=== PATIENT | male | born 1965 | race Caucasian/White ===

== ENCOUNTER 2017-07-31 11:44 | Emergency (ER) | payer SELFPAY ==
--- NOTE | 2017-07-31 11:53 | EDPHY ---
H & P Time Seen by Provider: 07/31/17 11:48 HPI/ROS: CHIEF COMPLAINT: Abdominal pain and vomiting HISTORY OF PRESENT ILLNESS: Patient has a history of carcinoid and multiple bowel obstructions, and tells me he was released from the hospital in [place] 3 weeks ago after intestinal perforation. He presents today with worsening abdominal pain since yesterday evening which is generalized and associated with "vomiting coffee-grounds" but no bloody stool or melena. Symptoms severe and worse with any oral intake. He states it feels identical to previous bowel obstruction. States "dilaudid is the only thing that helps" and allergic to fentanyl and morphine and IV contrast. REVIEW OF SYSTEMS: Eye: no change in vision ENT: no sore throat Cardiac: no chest pain or syncope Pulmonary: Chronic mild cough from his COPD, unchanged, not short of breath. Abdomen: HPI Musculoskeletal: no back pain Skin: no rash Neuro: no headache Constitutional: no fever : no urinary symptoms A comprehensive 10 point review of systems is otherwise negative aside from elements mentioned in the history of present illness. PAST MEDICAL HISTORY: previous bowel obstructions, abdominal surgery for carcinoid, hypertension, anemia, COPD Social history: Visiting from [place] as in HPI General Appearance: Alert and conversant, cooperative. Eyes: No scleral icterus. ENT, Mouth: Normal mucous membranes. Respiratory: Normal respiratory effort, breath sounds equal, lungs are clear to auscultation. Cardiovascular: Regular rate and rhythm. Normal bilateral femoral pulses. Normal peripheral pulses. Gastrointestinal: Abdomen is mildly distended with well-healed midline incision. No rebound or guarding, bowel sounds present. Rectal exam shows yellow stool sent for Hemoccult. Neurological: Alert, face symmetric, normal motor and sensory in extremities. Ambulatory, not ataxic, no antalgic gait. Skin: Warm and dry, no rashes. Musculoskeletal: No peripheral edema. Psychiatric: Not agitated. Emergency Department course/MDM: Patient states he is a hard IV stick and has IV contrast allergy. Plan for CT scanning without contrast, labs pain medication IV fluids. PDMP search is negative. Patient is yelling and asking for Dilaudid as he says it is "the only thing that works for my pain." Multiple times by myself to place IV with ultrasound assistance in both upper arms without success. Ultimately IV placed by nurse and medications given, labs drawn, off to CT. 1358: Patient states he has continued pain, only Dilaudid will help. CT scan the and lab results discussed. Since he does state that he has severe and unremitting pain; I offered to admit him to the hospital for further observation IV fluids and evaluation, the patient is agreeable to admission and determination of further treatment plan by inpatient hospitalist. Does not appear to have acute surgical abdominal process at this time. I think vascular emergency such as dissection or aneurysm is also unlikely. Patient refused nonsteroidal, ketamine, anti-emetics, anti-spasmodics, any other non-opioid treatments for his abdominal pain. 1419: Patient demanding to leave, appears comfortable, walks out without antalgic gait or assistance. He appears clinically to have capacity to make decisions regarding his care. Smoking Status: Current every day smoker Constitutional: Initial Vital Signs Temperature (C) 36.9 C 07/31/17 11:45 Heart Rate 85 07/31/17 11:45 Respiratory Rate 18 07/31/17 11:45 Blood Pressure 129/93 H 07/31/17 11:45 O2 Sat (%) 95 07/31/17 11:45 O2 Delivery Mode Room Air Allergies/Adverse Reactions: fentanyl Allergy (Verified 07/31/17 11:51) morphine Allergy (Verified 07/31/17 11:51) promethazine [From Phenergan] Allergy (Verified 07/31/17 11:50) ct contrast Allergy (Uncoded 07/31/17 11:50) Home Medications: Medication Instructions Recorded Albuterol 07/31/17 Calcium 07/31/17 Potassium Chloride 07/31/17 Vitamin B-12 07/31/17 Medical Decision Making - Diagnostics Imaging Results: Imaging Impressions Abdomen/Pelvis CT 07/31/17 12:00 Impression: 1. Severe constipation without definite evidence of obstruction. 2. Cholelithiasis without evidence of cholecystitis. 3. Additional findings as above. Attention: Please note the study is severely limited by lack of IV and enteric contrast. Depending on patient's ALLERGY, if symptoms persist and clinical suspicion warrants, repeat study with IV and oral contrast after premedication could be performed. Findings discussed with Dr. Jarred Kim on 07/31/2017 at 13:41. CT scan reviewed with Dr. Alfaro at 1:42 p.m. Shows no evidence of bowel obstruction or perforation, previous abdominal surgery, no reason for abdominal pain. Imaging: Discussed imaging studies w/ banquet server on call Radiologist Differential Diagnosis: Differential diagnosis considered for abdominal pain including but not limited to appendicitis, cholecystitis, pancreatitis, gastritis and urinary tract infection. Consult/Admit Bed Type: [place] [id number] - Data Points Laboratory Results: Laboratory Results 07/31/17 13:10 07/31/17 13:10 07/31/17 07/31/17 13:10 13:10 WBC 6.89 10^3/uL 10^3/uL (3.80-9.50) RBC 3.92 10^6/uL L 10^6/uL (4.40-6.38) Hgb 9.0 g/dL L g/dL (13.7-17.5) Hct 29.7 % L % (40.0-51.0) MCV 75.8 fL L fL (81.5-99.8) MCH 23.0 pg L pg (27.9-34.1) MCHC 30.3 g/dL L g/dL (32.4-36.7) RDW 20.3 % H % (11.5-15.2) Plt Count 239 10^3/uL 10^3/uL (150-400) MPV 9.2 fL fL (8.7-11.7) Neut % (Auto) 78.6 % H % (39.3-74.2) Lymph % (Auto) 10.2 % L % (15.0-45.0) [place] % (Auto) 9.0 % % (4.5-13.0) Eos % (Auto) 1.3 % % (0.6-7.6) Baso % (Auto) 0.6 % % (0.3-1.7) Nucleat RBC Rel Count 0.0 % % (0.0-0.2) Absolute Neuts (auto) 5.42 10^3/uL 10^3/uL (1.70-6.50) Absolute Lymphs (auto) 0.70 10^3/uL L 10^3/uL (1.00-3.00) Absolute Monos (auto) 0.62 10^3/uL 10^3/uL (0.30-0.80) Absolute Eos (auto) 0.09 10^3/uL 10^3/uL (0.03-0.40) Absolute Basos (auto) 0.04 10^3/uL 10^3/uL (0.02-0.10) Absolute Nucleated RBC 0.00 10^3/uL 10^3/uL (0-0.01) Immature Gran % 0.3 % % (0.0-1.1) Immature Gran # 0.02 10^3/uL 10^3/uL (0.00-0.10) Platelet Estimate ADEQUATE (ADEQ) Hypochromasia 1+ H Microcytic Cells 1+ H Sodium 141 mEq/L mEq/L (135-145) Potassium 4.0 mEq/L mEq/L (3.5-5.2) Chloride 103 mEq/L mEq/L (97-110) Carbon Dioxide 24 mEq/l mEq/l (22-31) Anion Gap 14 mEq/L mEq/L (8-16) BUN 13 mg/dL mg/dL (7-23) Creatinine 0.7 mg/dL mg/dL (0.7-1.3) Estimated GFR > 60 Glucose 76 mg/dL mg/dL (70-100) Calcium 8.5 mg/dL mg/dL (8.5-10.4) Total Bilirubin 0.5 mg/dL mg/dL (0.1-1.4) Conjugated Bilirubin 0.5 mg/dL mg/dL (0.0-0.5) Unconjugated Bilirubin 0.0 mg/dL mg/dL (0.0-1.1) AST 26 IU/L IU/L (17-59) ALT 40 IU/L IU/L (21-72) Alkaline Phosphatase 82 IU/L IU/L (38-126) Total Protein 7.3 g/dL g/dL (6.3-8.2) Albumin 4.1 g/dL g/dL (3.5-5.0) Lipase 107 IU/L IU/L (23-300) Medications Given: Discontinued Medications Hydromorphone HCl (Dilaudid) 0.5 mg IVP EDNOW ONE Stop: 07/31/17 12:01 Last Admin: 07/31/17 13:14 Dose: 0.5 mg Sodium Chloride (Ns) 1,000 mls @ 0 mls/hr IV EDNOW ONE; Wide Open PRN Reason: Protocol Stop: 07/31/17 12:01 Last Admin: 07/31/17 13:15 Dose: 1,000 mls Ondansetron HCl (Zofran) 4 mg IVP EDNOW ONE Stop: 07/31/17 12:01 Last Admin: 07/31/17 13:14 Dose: 4 mg Departure - Departure Disposition: Home, Routine, Self-Care Clinical Impression: Abdominal pain Qualifiers: Abdominal location: generalized Qualified Code(s): R10.84 - Generalized abdominal pain Condition: Good
[2017-07-31] MEDS ORDERED: HYDROmorphONE/DILAUDID 2 MG/ML INJ IVP ONE (12:00)
[2017-07-31] MEDS ORDERED: NS 1,000 ML IV ONE (12:00)
[2017-07-31] MEDS ORDERED: ONDANSETRON 4 MG/2 ML VIAL IVP ONE (12:00)
[2017-07-31 13:18] LABS: PLATELET COUNT 239 10^3/uL (150-400)
[2017-07-31 14:14] VITALS: BP 123/84
== END 2017-07-31 14:20 | disposition home or self-care (01) ==
LOC: UNDOADMOB 14:08
DX: R10.84 Generalized abdominal pain (principal); E86.9 Volume depletion, unspecified; I10 Essential (primary) hypertension; J44.9 Chronic obstructive pulmonary disease, unspecified; F17.200 Nicotine dependence, unspecified, uncomplicated
CPT/HCPCS: 96374; J1170; J2405